=== PATIENT | male | born 1955 | race Caucasian/White ===

== ENCOUNTER → 2016-10-15 | Outpatient (CLI) | payer MEDICAID, OTHER | END | disposition home or self-care (01) | LOC: CARD 15:37 | PROVIDERS: ATTEND Family Medicine | DX: R06.09 Other forms of dyspnea (principal) | CPT/HCPCS: 94060; 94726; 94729 ==

== ENCOUNTER 2019-03-09 07:25 | Day surgery (SDC) | payer MEDICARE, MEDICAID ==
[~2019-03-09] VITALS: Ht 177.8 cm; Wt 132.0 kg
[2019-03-09 08:04] VITALS: BP 138/85
[2019-03-09] MEDS ORDERED: ASPI-496 PO (08:23)
[2019-03-09] MEDS ORDERED: ALBU8.5H8 INH (08:23)
[2019-03-09] MEDS ORDERED: FINA5TAB4 PO (08:23)
[2019-03-09] MEDS ORDERED: TRAM50TA2 PO (08:23)
[2019-03-09] MEDS ORDERED: AMLO10TA8 PO (08:23)
[2019-03-09] MEDS ORDERED: TIOT18CA INH (08:23)
[2019-03-09] MEDS ORDERED: AMIT10TA PO (08:23)
[2019-03-09] MEDS ORDERED: INSULIN SC (08:23)
[2019-03-09] MEDS ORDERED: LOSA25TA25 PO (08:23)
[2019-03-09 08:40] LABS: INTERNATIONAL NORMALIZED RATIO 1.02 (0.93-1.1); PROTHROMBIN TIME 10.7 Seconds (9.6-11.5)
[2019-03-09] MEDS ORDERED: MIDAZOLAM 1 MG/ML, 5ML ONE (09:20)
[2019-03-09] MEDS ORDERED: NALOXONE 1 MG/ML, 2ML ONE (09:20)
[2019-03-09] MEDS ORDERED: FLUMAZENIL 0.1 MG/1 ML, 5ML ONE (09:20)
[2019-03-09] MEDS ORDERED: FENTANYL PF 100 MCG/2ML ONE (09:20)
== END 2019-03-09 11:55 | disposition home or self-care (01) ==
LOC: OUT 07:25
PROVIDERS: ATTEND Radiology Diagnostic Radiology
DX: R80.9 Proteinuria, unspecified (principal); E11.22 Type 2 diabetes mellitus with diabetic chronic kidney disease; I12.9 Hypertensive chronic kidney disease with stage 1 through stage 4 chronic kidney disease, or unspecified chronic kidney disease; N18.3 Chronic kidney disease, stage 3 (moderate); J44.9 Chronic obstructive pulmonary disease, unspecified; I25.2 Old myocardial infarction; I25.10 Atherosclerotic heart disease of native coronary artery without angina pectoris; G47.33 Obstructive sleep apnea (adult) (pediatric); N40.0 Benign prostatic hyperplasia without lower urinary tract symptoms; F17.210 Nicotine dependence, cigarettes, uncomplicated; Z79.4 Long term (current) use of insulin; Z79.82 Long term (current) use of aspirin; Z79.01 Long term (current) use of anticoagulants; Z79.891 Long term (current) use of opiate analgesic; Z79.899 Other long term (current) drug therapy
CPT/HCPCS: 36415; 50200; 77012; 82962; 85610; 88300; 99156; 99157; J2250; J3010; J2310